=== PATIENT | male | born 1945 | race Hispanic/Latino ===

== ENCOUNTER 2025-09-15 10:44 | Emergency (ER) | payer OTHER, MEDICARE ==
[~2025-09-15] VITALS: Ht 165.1 cm; Wt 68.0 kg
[~2025-09-15 10:44] MED LIST: APIX5TAB PO; CYCL-309 PO; GABA100C PO; HYDR-4060 PO; LATA7.5D OP; LISI40TA15 PO; SERT-440 PO; TIMOLOL OU
[2025-09-15 12:43] VITALS: BP 161/95; PULSE 95; RESP 18; TEMP 97.9; O2SAT 99
[2025-09-15] MEDS ORDERED: PRED20TA3 PO (12:50)
[2025-09-15] MEDS ORDERED: ACYC-61 PO (12:50)
--- NOTE | 2025-09-15 12:50 | ERN ---
ED Note History of Present Illness Stated Complaint: RASH Chief Complaint: Skin Rash/Abscess Time Seen by MD: 11:28 Dictation: 80-year-old male presenting to the emergency department for rash to the left side of chest wall over the past few days causing pain and redness, also has a vesicle like rash to the area. No trauma no similar history in the past. Allergies: Coded Allergies: No Known Drug Allergies (Unverified Allergy, Unknown, 06/28/22) Home Meds Active Scripts Apixaban (Eliquis) 5 Mg Tablet, 5 MG PO QDP for clot prevention for 30 Days, #30 TAB 0 Refills Prov:NAE NATHAN MD 07/03/22 Hydrocodone/Acetaminophen (Hydrocodon-Acetaminophen 5-325) 1 Each Tablet, 1-2 TAB PO Q4H PRN for MODERATE PAIN (4-6), #56 TAB 0 Refills Prov:NAE NATHAN MD 07/03/22 Gabapentin (Neurontin) 100 Mg Capsule, 100 MG PO TID, #90 CAP 0 Refills Prov:NAE NATHAN MD 07/03/22 Cyclobenzaprine HCl (Cyclobenzaprine HCl) 10 Mg Tablet, 5 MG PO TID PRN for pain/spasm, #90 TAB 0 Refills Prov:NAE NATHAN MD 07/03/22 Reported Medications Sertraline HCl (Sertraline HCl) 100 Mg Tablet, 100 MG PO AM, TAB 06/28/22 [Timolol] No Conflict Check, 1 DROP OU BID 06/28/22 Latanoprost/Pf (Latanoprost 0.005% Eye Drop) 7.5 Ml Drops, 1 DROP OP HS, DROP 06/28/22 Lisinopril (Lisinopril) 40 Mg Tablet, 40 MG PO AM, TAB 06/28/22 Past Medical History Past Medical History: Hypertension Surgical History: Other Surgical History Other: KNEE SX, LOWER BACK SX Review of System Dictation Constitutional: Negative for fever,chills, and weight loss Eyes: Negative for injury, pain,redness, and discharge ENT: Negative for injury,pain or swelling Cardiovascular: Negative for chest pain, palpitations, and edema Respiratory: Negative for shortness of breath, cough, and wheezing, Abdomen/GI: Negative for abdominal pain, nausea, vomiting, diarrhea, and constipation Back: Negative for injury and pain : Negative for injury, bleeding and discharge MS/Extremity: Negative for injury and deformity Skin: Per HPI Neuro: Negative for headache, weakness, numbness, tingling, and seizure Psych: Negative for suicide ideation, homicidal ideation, and hallucinations Initial Vital Sign VS Vital Signs Date Time Temp Pulse Resp B/P (MAP) Pulse Ox O2 Delivery O2 Flow Rate FiO2 09/15/25 10:46 97.7 106 18 175/103 99 Room Air Physical Exam Dictation General: awake, alert, NAD Head/Face: Normocephalic, atraumatic Eyes: PERRL, EOMI, vision at baseline ENT: oral cavity clear, TMs clear, no signs of infection Neck: Trachea midline, supple, no nuchal rigidity Cardiovascular: RRR, normal S1/S2, No MRGs, no JVD Respiratory: CTAB, no respiratory distress, No rales or wheezes Abdomen: Soft, non-tender, non-distended, normal bowel sounds, no guarding or rebound. Skin: Warm, dry, normal turgor, left-sided chest wall to the mid chest wall area around the nipple line shows erythematous rash with vesicles that covers the left side dermatome area sparing the right side of the chest wall, MS/Extremity: Pulses equal, no cyanosis, neurovascular intact, FROM Neuro: COAx4, GCS 15, strength 5/5, CN 2-12 intact, normal cerebellar exam, normal gait, Psych: Normal behavior, mood, and affect normal ED Course ED Course Orders Procedure Category Date Status Time Dexamethasone 4mg/Ml PHA 09/15/25 Complete 1ml Vial (Dexametha 12:23 Ketorolac PHA 09/15/25 Complete Tromethamine 15mg/Ml 12:23 Current Medications Medications (Trade) Dose Ordered Sig/Vance Route PRN Reason Start Time Stop Time Status Last Admin Dose Admin Dexamethasone Sodium Phosphate (dexaMETHasone 4MG/ML 1ML VIAL) 4 mg ONCE STAT IM 09/15/25 12:23 09/15/25 12:32 DC 09/15/25 12:40 Ketorolac Tromethamine (toRADol) 15 mg ONCE STAT IM 09/15/25 12:23 09/15/25 12:34 DC 09/15/25 12:43 Vital Signs Date Time Temp Pulse Resp B/P (MAP) Pulse Ox O2 Delivery O2 Flow Rate FiO2 09/15/25 10:46 97.7 106 18 175/103 99 Room Air Medical Decision Making MDM MDM: Differential diagnosis: Rationale: Tests considered and ordered secondary to shared decision making include: Previous outside records reviewed: Old ER visits. Risk of complication and/or morbidity or mortality of patient management: None Medications-Per medication reconciliation Need for hospitalization: Patient does not meet criteria for hospitalization. Need for emergency major/minor surgery: No There are no social concerns with this patient. Prescription drug management Prescriptions will include symptomatic care Patient's prior external medical records from other ER visits were reviewed by me as indicated. Prior testing and results from previous visits were reviewed. Prior tests were taken into account with medical decision making and resource utilization, independent historian/historians were used to obtain complete medical history. I independently interpreted the test that were performed, results were reviewed by me and considered findings on radiology if ordered. Medical management and examination interpretation discussions were had by me with other qualified healthcare professionals as indicated for the patient's care. 80-year-old male with shingles chest wall, stable exam nontoxic prescriptions g iven stable for discharge DX & DISP Disposition: Discharge Departure Impression: Primary Impression: Shingles rash Condition: Stable Scripts Acyclovir (Acyclovir) 200 Mg Capsule 1 CAP PO 5XDAY for 5 Days, #25 CAP 0 Refills Prov: NORA ESQUIVEL MD 09/15/25 Prednisone (Prednisone) 20 Mg Tablet 1 TAB PO DAILY for 5 Days, #5 TAB 0 Refills Prov: NORA ESQUIVEL MD 09/15/25 Referrals: CHILO DOMÍNGUEZ (PCP) NORA ESQUIVEL MD Sep 15, 2025 12:50
== END 2025-09-15 12:55 | disposition home or self-care (01) ==
LOC: EDH 10:44
DX: B02.9 Zoster without complications (principal); I10 Essential (primary) hypertension; Z79.899 Other long term (current) drug therapy
CPT/HCPCS: 99284; 96372 ×2; J1100; J1885